=== PATIENT | male | born 1960 | race Caucasian/White ===

== ENCOUNTER 2021-09-02 06:33 | Day surgery (SDC) | payer BC, OTHER ==
[2021-09-01 14:22] VITALS: BMI 26.6
[2021-09-02 08:50] VITALS: TEMP 97.8
[2021-09-02 08:54] VITALS: BP 120/77; PULSE 67
== END 2021-09-02 08:40 | disposition home or self-care (01) ==
LOC: FASU 06:33
PROVIDERS: ATTEND Ophthalmology
PROC: 08RK3JZ Replacement of Left Lens with Synthetic Substitute, Percutaneous Approach (ICD-10-PCS; principal; 2021-09-02)
DX: H26.8 Other specified cataract (principal)
CPT/HCPCS: J1097

== ENCOUNTER 2021-10-28 08:03 | Day surgery (SDC) | payer OTHER ==
[2021-10-27 09:12] VITALS: BMI 26.6
[2021-10-28] MEDS: TROPICAMIDE 1% OPHTH SOLN 15 ML BOTTLE ONE ×3 (08:50→09:00)
[2021-10-28] MEDS: CYCLOPENTOLATE 2% OPHTH SOLN 2 ML BOTTLE ONE ×3 (08:50→09:00)
[2021-10-28] MEDS: PHENYLEPHRINE 2.5% OPHTH SOLN 15 ML BOTTLE ONE ×3 (08:50→09:00)
[2021-10-28] MEDS: CIPROFLOXACIN 0.3% EYE DROPS 5 ML BOTTLE ONE ×3 (08:50→09:00)
[2021-10-28] MEDS ORDERED: MIDAZOLAM HCL 2 MG/2 ML SINGLE DOSE VIAL ONE ×2 (09:42→09:51)
[2021-10-28] MEDS ORDERED: PHENYLEPHRINE HCL 10 MG/1 ML SINGLE DOSE VIAL ONE (10:11)
[2021-10-28 10:44] VITALS: TEMP 97.8
[2021-10-28 10:46] VITALS: BP 123/71; PULSE 68
== END 2021-10-28 10:35 | disposition home or self-care (01) ==
LOC: FASU 08:03
PROVIDERS: ATTEND Ophthalmology
PROC: 08RJ3JZ Replacement of Right Lens with Synthetic Substitute, Percutaneous Approach (ICD-10-PCS; principal; 2021-10-28 09:45)
DX: H26.8 Other specified cataract (principal)